=== PATIENT | female | born 1960 | race Asian ===

== ENCOUNTER 2023-01-25 06:37 | Day surgery (SDC) | payer OTHER ==
[~2023-01-25] VITALS: Ht 153.7 cm; Wt 49.9 kg
[~2023-01-25 06:37] MED LIST: SODIUM CHLORIDE 0.9% 1,000 ML IV ONE
[2023-01-25] MEDS ORDERED: SODIUM CHLORIDE 0.9% 1,000 ML ONE (07:19)
[2023-01-25] MEDS ORDERED: FentaNYL CITRATE PF 100 MCG/2 ML VIAL ONE (07:50)
[2023-01-25] MEDS ORDERED: MIDAZOLAM HCL 2 MG/2 ML VIAL ONE (07:51)
[2023-01-25 09:11] VITALS: PULSE 55; RESP 16; O2SAT 100
[2023-01-25] MEDS ORDERED: MethylPREDNISolone SOD SUCC 125 MG/2 ML VIAL IVP ONE (09:45)
== END 2023-01-25 11:30 | disposition home or self-care (01) ==
LOC: SURGERY 06:37
PROVIDERS: ATTEND Internal Medicine Critical Care Medicine
DX: J38.4 Edema of larynx (principal); B37.0 Candidal stomatitis; Z98.890 Other specified postprocedural states; Z79.899 Other long term (current) drug therapy
CPT/HCPCS: 31623; 88112; 87206; 87101; 87220; 87070; 88305; 31624; 94640; 71045; 87015; J3010; J2250; J7030